=== PATIENT | female | born 1950 | race Caucasian/White ===

== ENCOUNTER 2017-03-08 19:50 | Emergency (ER) | payer OTHER ==
[~2017-03-08] VITALS: Ht 175.3 cm; Wt 52.3 kg
[2017-03-08 19:58] VITALS: BP 137/75; PULSE 83; RESP 16; O2SAT 99
--- NOTE | 2017-03-08 22:13 | ED.REPORT ---
HPI-Extremity Problem Lower Date of Service March 08, 2017 ED Provider: Doc,Ed MD The patient is a 66 year old female with history of fibromyalgia, who was sent to the emergency department from urgent care for a left lower extremity injury that occurred 2 weeks ago. The patient states a large wood planking fell on her left leg causing a large bruise and pain. At this time she complains of lower extremity swelling and pain. At urgent care today the provider was concerned that the cap refill was decreased on the injured leg so she was sent here for further evaluation. She denies any other injuries or traumas. Nursing Notes Stated Complaint: LEFT LEG PAIN Chief Complaint: Extremity Trauma Nursing Notes Reviewed: Yes Allergies: Coded Allergies: Penicillins (Verified Allergy, Intermediate, 03/08/17) Sulfa (Sulfonamide Antibiotics) (Verified Allergy, Mild, 03/08/17) General Time Seen by MD: 22:13 Chief Complaint Leg injury left Hx Obtained From: Patient Arrived By: Walk-in Onset Occurred: More than a week ago... Symptom Duration: Since onset Location: : Leg left Quality: Painful Severity: Current: Moderate Severity: Maximum: Moderate Recent Healthcare: No recent hospitalization, Recent doctor visit Similar Sx Previous: Yes Past Medical History Past Medical History Fibromyalgia Restless leg syndrome Depression Treated for pneumonia 2 months ago Past Surgical History Right shoulder surgery Right ankle surgery Family History Noncontributory Social History Other Social History: Local resident Ambulatory Status Independent Review of Systems Review of Systems Note: +decreased cap refill Musculoskeletal: Reports: Extremity pain, Extremity swelling, Joint pain, Joint swelling Skin: Reports Bruising Complete sys rev & neg: except as marked. Physical Exam Initial Vital Signs Vital Signs (First) Date Time Temp Pulse Resp B/P Pulse Ox O2 Delivery O2 Flow Rate FiO2 03/08/17 19:58 36.1 83 16 137/75 99 Room Air Initial VS: Reviewed Head / Eyes: Atraumatic, Normocephalic, PERRL ENT: Mucous membranes moist, Conjunctiva normal, No scleral icterus Neck: Supple, Non-tender, Full range of motion Respiratory: Breath sounds normal, Clear to auscultation, No respiratory distress Cardiovascular: Regular rate & rhythm, Heart sounds normal, Intact distal pulses Abdomen / GI: Soft, Non-tender, No guarding, No rebound, No distention Lymphatic: No lymphadenopathy Upper Extremities: Vascular intact, Neuro intact, No swelling, No tenderness Skin: Warm, Dry, No cyanosis Neurologic: Alert, Oriented, Nonfocal Psychiatric: Mood/affect normal, Behavior normal, Normal thought content Lower Extremity / Pelvis / MS: Neurologic intact, Vascular intact She has some tenderness of her entire left tibia and subjective pain with ankle range of motion. But the patient ambulates without a limp. Ankle / Foot: Neurologic intact, Vascular intact General/Constitutional: Awake, Alert, Cooperative Additional Physical Exam: No lower extremity edema present Interpretation & Diagnostics X-Ray Interpretation X-Ray Ordered: Tibia fibula left Interpretation / Wet Read by: Wet read ED physician Interpretation: Normal exam, No fracture/dislocation X-Ray Ordered: Foot left Interpretation / Wet Read by: Wet read ED physician Interpretation: Normal exam, No fracture/dislocation Re-Eval/Medical Decision Source of Hx: Old records Re-Evaluation/Progress #1: Time of Eval: 23:30 Re-Evaluation/Progress Note: Rechecked the patient. She is requesting an x-ray. Re-Evaluation/Progress #2: Time of Eval: 00:00 Re-Evaluation/Progress Note: Discussed x-ray results, diagnosis, and plan for discharge. All questions were addressed. Counseled Regarding: Diagnosis, Need for follow-up, When/why to return to ED Discharge & Departure Impression: Primary Impression: Left leg injury Encounter type: initial encounter Qualified Code: S89.92XA - Unspecified injury of left lower leg, initial encounter Additional Impression: Left ankle injury Encounter type: initial encounter Qualified Code: S99.912A - Unspecified injury of left ankle, initial encounter Disposition: Home Discharge Condition All VS Reviewed: Yes Condition: Stable Additional Instructions: Thank you for entrusting us with your care today. Your exam findings and x-ray results are reassuring. There is no evidence of any acute fractures. Elevate your leg when possible. Use the Vicodin as needed for your pain. You can try applying ice or heat if it helps with the pain. Followup with your regular doctor next week if your symptoms are not improving. If you do not have a regular doctor we have given you a referral to the residency clinic. Seek care for any new or concerning symptoms. Referrals: [facility] Res[facility] Scribe Attestation Portions of this note were transcribed by Lin Knutson. Dr. Reagan Mendez personally performed the history, physical exam and medical decision-making; I reviewed and confirmed the accuracy of the information in the transcribed note. Signed by: Clarissa Bond, 03/08/2017 at 0001. copies to: [facility] Res[facility] Stanley Kirk DO March 08, 2017 22:13 Lin Knutson March 08, 2017 22:25
[2017-03-08] MEDS ORDERED: _HYDROcodone/APAP 5-325 mg Tablet PO PRN (23:35)
[2017-03-09 00:11] VITALS: BP 134/81; PULSE 73; RESP 16; O2SAT 98
--- NOTE | 2017-03-09 09:34 | DRSVH ---
PROCEDURE: X-RAY LEFT TIBIA/FIBULA, TWO VIEWS ([id number]) INDICATIONS: L tibia pain, trauma TECHNIQUE: 2 views of the tibia and fibula were acquired. COMPARISON: None. FINDINGS: Bones: No fractures or dislocations. No suspicious bony lesions. Soft tissues: No suspicious soft tissue calcifications or masses. IMPRESSION: No fracture Dictated by: Angel Rios M.D. on 03/09/2017 at 9:33 Approved by: Angel Rios M.D. on 03/09/2017 at 9:33
--- NOTE | 2017-03-09 09:40 | DRSVH ---
PROCEDURE: X-RAY LEFT FOOT, TWO VIEWS ([id number]) INDICATIONS: foot pain, trauma TECHNIQUE: 3 views of the foot were acquired. COMPARISON: None. FINDINGS: Bones: No fractures or dislocations. No suspicious bony lesions. Soft tissues: No tibiotalar joint effusion. Achilles tendon appears normal. IMPRESSION: No fracture Dictated by: Angel Rios M.D. on 03/09/2017 at 9:38 Approved by: Angel Rios M.D. on 03/09/2017 at 9:39
== END 2017-03-09 00:11 | disposition home or self-care (01) ==
LOC: SED 19:50
DX: S89.82XA Other specified injuries of left lower leg, initial encounter (principal); S99.812A Other specified injuries of left ankle, initial encounter; W20.8XXA Other cause of strike by thrown, projected or falling object, initial encounter; Y92.019 Unspecified place in single-family (private) house as the place of occurrence of the external cause; Y99.8 Other external cause status; F32.9 Major depressive disorder, single episode, unspecified; M79.7 Fibromyalgia; Z88.0 Allergy status to penicillin; Z88.2 Allergy status to sulfonamides